=== PATIENT | female | born 1995 | race Caucasian/White ===

== ENCOUNTER 2016-10-06 22:12 | Emergency (ER) | payer MEDICAID ==
[2014-03-08 13:37] VITALS: BMI 31.1
[~2016-10-06 22:12] MED LIST: CIPRO500 MG PO; EZFE 200200 MG PO; FERROUS SULFAT325 MG PO; FLAGYL500 MG PO; MOTRIN600 MG PO; PERCOCET 10/3251 TA1 PO; PRENATAL COMPLE1 TAB PO; PROZAC20 MG PO
[2016-10-06 23:16] LABS: UDS - AMPHET NEGATIVE QUAL (NEGATIVE); UDS - BARB NEGATIVE QUAL (NEGATIVE); UDS - BENZO NEGATIVE QUAL (NEGATIVE); UDS - COCAINE NEGATIVE QUAL (NEGATIVE); UDS - METH NEGATIVE QUAL (NEGATIVE); UDS - OPIATE NEGATIVE QUAL (NEGATIVE); UDS - PCP NEGATIVE QUAL (NEGATIVE); UDS - THC NEGATIVE QUAL (NEGATIVE)
[2016-10-06 23:18] LABS: APPEARANCE HAZY (CLEAR); BILIRUBIN NEGATIVE (NEGATIVE); COLOR STRAW (YELLOW); GLUCOSE NEGATIVE (NEGATIVE); KETONE NEGATIVE (NEGATIVE); LEUKOCYTE ESTERASE NEGATIVE (NEGATIVE); NITRITE NEGATIVE (NEGATIVE); PH 6.5 (5.0-6.0); PROTEIN NEGATIVE (NEGATIVE); UROBILINOGEN NORMAL (NORMAL)
[2016-10-06 23:32] LABS: BASOPHILS 0.3 % (0.0-2.0); EOSINOPHILS 0.5 % (0-7); HCG SERUM NEGATIVE (NEGATIVE); HEMOGLOBIN 11.9 g/dL (12-16); IMMATURE GRANULOCYTES 0.3 % (0-5); LYMPHOCYTES 20.7 % (15-50); MCH 28.7 pg (26.0-34.0); MCHC 32.2 g/dL (31.0-37.0); MCV 89.4 fL (80.0-100.0); MEAN PLATELET VOLUME 10.9 fL (7.4-10.4); MONOCYTES 4.8 % (2-11); NEUTROPHILS 73.4 % (40-80); PLATELET COUNT 237 10x3/uL (130-400); RBC 4.14 10x6/uL (4.00-5.40); RDW 13.1 % (11.5-14.5)
[2016-10-06 23:48] LABS: ALBUMIN 3.8 g/dL (3.4-5.0); ALKALINE PHOSPHATASE 63 U/L (46-116); ALT (SGPT) 24 U/L (10-68); BILIRUBIN - TOTAL 0.24 mg/dL (0.2-1.3); CALC OSMOLALITY 283 mosm/kg (275-300); CARBON DIOXIDE 26.8 mmol/L (21.0-32.0); CHLORIDE - SERUM 105 mmol/L (98-107); CREATININE - SERUM 0.8 mg/dL (0.6-1.3); GLUCOSE 101 mg/dL (74-106); POTASSIUM - SERUM 3.5 mmol/L (3.5-5.1); PROTEIN - SERUM 7.7 g/dL (6.4-8.2); SODIUM 142 mmol/L (136-145); UREA NITROGEN 15 mg/dL (7-18); eGFR NON AFRICAN AMERICAN > 90 mL/min (90-120)
[2016-10-07 06:10] LABS: UDS - AMPHET NEGATIVE QUAL (NEGATIVE); UDS - BARB NEGATIVE QUAL (NEGATIVE); UDS - BENZO POSITIVE QUAL (NEGATIVE); UDS - COCAINE NEGATIVE QUAL (NEGATIVE); UDS - METH NEGATIVE QUAL (NEGATIVE); UDS - OPIATE NEGATIVE QUAL (NEGATIVE); UDS - PCP NEGATIVE QUAL (NEGATIVE); UDS - THC POSITIVE QUAL (NEGATIVE)
== END 2016-10-08 00:22 | disposition short-term general hospital (02) ==
LOC: D.ER 22:12
PROVIDERS: Emergency Medicine
DX: F33.9 Major depressive disorder, recurrent, unspecified (principal); T40.2X2A Poisoning by other opioids, intentional self-harm, initial encounter; T42.4X2A Poisoning by benzodiazepines, intentional self-harm, initial encounter; Y92.89 Other specified places as the place of occurrence of the external cause; F10.129 Alcohol abuse with intoxication, unspecified; T14.91 Suicide attempt; F41.9 Anxiety disorder, unspecified

== ENCOUNTER 2017-05-17 23:18 | Emergency (ER) | payer MEDICAID ==
[2014-03-08 13:37] VITALS: BMI 31.1
== END 2017-05-17 23:56 | disposition home or self-care (01) ==
LOC: D.ER 23:18
DX: L25.9 Unspecified contact dermatitis, unspecified cause (principal); F17.200 Nicotine dependence, unspecified, uncomplicated

== ENCOUNTER 2017-07-22 12:45 | Emergency (ER) | payer MEDICAID ==
[2014-03-08 13:37] VITALS: BMI 31.1
[2017-07-22 14:16] LABS: APPEARANCE SLT CLOUDY (CLEAR); BILIRUBIN NEGATIVE (NEGATIVE); COLOR YELLOW (YELLOW); GLUCOSE NEGATIVE (NEGATIVE); KETONE NEGATIVE (NEGATIVE); NITRITE NEGATIVE (NEGATIVE); PROTEIN NEGATIVE (NEGATIVE); SPECIFIC GRAVITY 1.015 (1.005-1.020); UROBILINOGEN NORMAL (NORMAL)
[2017-07-22 14:18] LABS: BACTERIA MANY /hpf (NONE SEEN); MUCUS <1+ /lpf (NONE SEEN); RED CELLS - URINE 0-5 /hpf (0-5)
[2017-07-22 16:25] LABS: HCG URINE NEGATIVE (NEGATIVE)
== END 2017-07-22 17:07 | disposition home or self-care (01) ==
LOC: D.ER 12:45
PROVIDERS: Emergency Medicine; Nurse Practitioner Family
DX: N39.0 Urinary tract infection, site not specified (principal); F17.200 Nicotine dependence, unspecified, uncomplicated

== ENCOUNTER 2017-08-02 11:43 | Emergency (ER) | payer MEDICAID ==
[2014-03-08 13:37] VITALS: BMI 31.1
== END 2017-08-02 12:59 | disposition home or self-care (01) ==
LOC: D.ER 11:43
DX: N39.0 Urinary tract infection, site not specified (principal)

== ENCOUNTER 2017-10-11 03:03 | Emergency (ER) | payer MEDICAID ==
[2014-03-08 13:37] VITALS: BMI 31.1
== END 2017-10-11 03:56 | disposition home or self-care (01) ==
LOC: D.ER 03:03
DX: S61.214A Laceration without foreign body of right ring finger without damage to nail, initial encounter (principal); Y04.2XXA Assault by strike against or bumped into by another person, initial encounter; Y93.89 Activity, other specified; Y92.019 Unspecified place in single-family (private) house as the place of occurrence of the external cause; F17.200 Nicotine dependence, unspecified, uncomplicated